=== PATIENT | female | born 2000 | race Caucasian/White ===

== ENCOUNTER → 2020-08-27 08:11 | Outpatient (CLI) | payer OTHER, SELFPAY ==
[2020-08-27] MEDS: COVID-19 VACC, Ad26(JANSSEN)/PF 0.5 ML IM (08:21)
== END ==
PROVIDERS: Visit Provider Internal Medicine
DX: Z23 Encounter for immunization (principal)
CPT/HCPCS: 0031A; 91303

== ENCOUNTER → 2024-05-30 09:22 | Outpatient (CLI) | payer OTHER, SELFPAY ==
[2024-05-30 11:48] LABS: HIV 1 & 2 Ab/Ag 4th Gen Combo NEGATIVE (NEGATIVE)
[2024-05-31 07:08] LABS: HCV AB Non Reactive (Non Reactive)
[2024-05-31 08:10] LABS: RPR Screen Non Reactive (Non Reactive)
== END ==
PROVIDERS: Referring Provider Family Medicine; Visit Provider Family Medicine
DX: Z11.3 Encounter for screening for infections with a predominantly sexual mode of transmission (principal)
CPT/HCPCS: 36415; 86592; 86803; 87389

== ENCOUNTER → 2025-04-13 09:45 | Outpatient (CLI) | payer OTHER, SELFPAY ==
[2025-04-13 13:05] LABS: Urine N gonorrhoeae NOT DETECTED
[2025-04-13 13:06] LABS: Urine Chlamydia NOT DETECTED
[2025-04-14 15:17] LABS: HIV 1 & 2 Ab/Ag 4th Gen Combo NEGATIVE (NEGATIVE)
== END ==
PROVIDERS: PCP Family Medicine; Referring Provider Family Medicine; Visit Provider Family Medicine
DX: Z11.3 Encounter for screening for infections with a predominantly sexual mode of transmission (principal)
CPT/HCPCS: 36415; 86592; 86803; 87389; 87491; 87591